=== PATIENT | female | born 1970 | race African-American/Black ===

== ENCOUNTER 2022-07-31 23:57 | Emergency (ER) | payer OTHER ==
[~2022-07-31] VITALS: Ht 167.6 cm; Wt 74.8 kg
[2022-08-01 00:17] VITALS: BP 130/95; TEMP 98.7
[2022-08-01] MEDS ORDERED: ACYC-108 PO (00:18)
[2022-08-01] MEDS ORDERED: NABU-141 PO (00:18)
[2022-08-01] MEDS ORDERED: OXYC-128 PO (00:18)
[2022-08-01] MEDS ORDERED: ACYCLOVIR 200 MG CAPSULE ONE (00:27)
[2022-08-01] MEDS ORDERED: KETOROLAC TROMETHAMINE INJ 60 MG/2 ML VIAL IM ONE ×2 (00:27→00:30)
[2022-08-01] MEDS ORDERED: HYDROCODONE/APAP 5/325MG TABLET ONE (00:27)
[2022-08-01] MEDS ORDERED: ACYCLOVIR 200 MG CAPSULE PO ONE (00:30)
[2022-08-01] MEDS ORDERED: HYDROCODONE/APAP 5/325MG TABLET PO ONE (00:30)
[2022-08-01 00:38] VITALS: O2SAT 100
== END 2022-08-01 00:39 | disposition home or self-care (01) ==
LOC: ER 08-01 00:01
DX: B02.9 Zoster without complications (principal); Z98.890 Other specified postprocedural states; Z79.899 Other long term (current) drug therapy
CPT/HCPCS: 99283; 96372; J1885